=== PATIENT | female | born 1995 | race American Indian/Alaskan Native ===

== ENCOUNTER 2018-03-28 10:06 | Emergency (ER) | payer SELFPAY ==
[2018-03-28 10:19] VITALS: BP 115/66
[2018-03-28 11:40] LABS: Bilirubin,Urine NEG (Negative); Blood,Urine NEG (Negative); Color,Urine Yellow (Yellow); Mucus,Urine 1+ /HPF; Protein,Urine <15 mg/dL mg/dL (Negative)
[2018-03-28 11:41] LABS: HCG Qualitative,Urine Positive (Negative)
[2018-03-28] MEDS ORDERED: ZOFRAN ODT PO ONE (12:21)
--- NOTE | 2018-03-28 12:22 | Emergency Department Report ---
Vomiting/Diarrhea - HPI Chief Complaint: Nausea/Vomiting/Diarrhea Stated Complaint: NAUSEA/VOMITING Time Seen by Provider: 03/28/18 12:10 Severity: mild (the patient has been having nausea and vomiting for approximately 1 month) Nausea/Vomiting Severity: Mild Diarrhea Severity: None Symptoms: Yes Able to Tolerate Fluids, No Watery Diarrhea, No Bloody diarrhea, No Fever, No Recent Unusual Foods, No Recent Untreated Water, No Recent use of Antibiotics, No Family w/ Similar Symptoms, No Contacts w/ Similar Symptoms, No Rash, No Hematuria Other History: H and states she's had some nausea for approximately 1 month. Patient states she's had some mild fatigue. Patient missed her last menses but those to stress-induced. Patient states she is able to keep down fluids but is unable to eat. ED Review of Systems ROS: Stated complaint: NAUSEA/VOMITING Other details as noted in HPI Comment: All other systems reviewed and negative ED Past Medical Hx - Past Medical History Previous Medical History?: No - Surgical History Past Surgical History?: No - Social History Smoking Status: Never Smoker Substance Use Type: Marijuana - Medications Home Medications: Home Medications Medication Instructions Recorded Confirmed Last Taken Type Ondansetron [Zofran Odt] 4 mg PO Q12HR PRN #12 tab.rapdis 03/28/18 Unknown Rx Vomiting Diarrhea Exam - Exam General: Vital signs noted. No distress. Alert and acting appropriately. HEENT: Yes Moist Mucous Membranes, No Pharyngeal Erythema, No Pharyngeal Exudates, No Rhinorrhea, No Conjuctival Injection, No Frontal Tenderness, No Maxillary Tenderness Neck: No Adenopathy, No Rigidity Lungs: Yes Clear Lung Sounds, Yes Good Air Exchange, No Wheezes, No Stridor, No Cough, No Nasal Flaring, No Retractions, No Use of Accessory Muscles Heart exam: Regular: Yes, Murmur: No, Tachycardia: No Abdomen: Tenderness: No, Peritoneal Signs: No, Distention: No, Hyperactive Bowel sounds: No Skin exam: Rash: No, Edema: No, Normal turgor: Yes Neurologic: Alert and oriented, no deficits. Musculoskeletal: Unremarkable. ED Course Vital Signs 03/28/18 10:14 Temperature 98.5 F Pulse Rate 86 Respiratory 18 Rate Blood Pressure 115/66 O2 Sat by Pulse 100 Oximetry ED Medical Decision Making - Lab Data Lab Results 03/28/18 Range/Units 11:13 Urine Color Yellow (Yellow) Urine Turbidity Hazy (Clear) Urine pH 6.0 (5.0-7.0) Ur Specific [place] 1.025 (1.003-1.030) Urine Protein <15 mg/dl (Negative) mg/dL Urine Glucose (UA) Neg (Negative) mg/dL Urine Ketones Tr (Negative) mg/dL Urine Blood Neg (Negative) Urine Nitrite Neg (Negative) Urine Bilirubin Neg (Negative) Urine Urobilinogen 2.0 (<2.0) mg/dL Ur Leukocyte Esterase Neg (Negative) Urine WBC (Auto) 2.0 (0.0-6.0) /HPF Urine RBC (Auto) 3.0 (0.0-6.0) /HPF U Epithel Cells (Auto) 10.0 (0-13.0) /HPF Urine Mucus 1+ /HPF Urine HCG, Qual Positive A (Negative) - Medical Decision Making Carolina Adams's test was positive. Patient is a normal exam. There is no abdominal pain. Her mucous membranes are moist does not appear that she needs IV fluids at this time. Patient restarted on Zofran be discharged home with care. Critical care attestation.: If time is entered above; I have spent that time in minutes in the direct care of this critically ill patient, excluding procedure time. ED Disposition Clinical Impression: Nausea & vomiting Qualifiers: Weeks of gestation: unspecified Qualified Code(s): Z34.90 - Encounter for supervision of normal , unspecified, unspecified trimester Disposition: DC-01 TO HOME OR SELFCARE Is pt being admited?: No Does the pt Need Aspirin: No Condition: Stable Prescriptions: Ondansetron [Zofran Odt] 4 mg PO Q12HR PRN #12 tab.rapdis PRN Reason: Nausea Referrals: NATALIA ACEVEDO MD [Staff Physician] - 3-5 Days
== END 2018-03-28 12:33 | disposition home or self-care (01) ==
LOC: ED 10:06
DX: O21.9 Vomiting of pregnancy, unspecified (principal); F12.10 Cannabis abuse, uncomplicated; Z3A.01 Less than 8 weeks gestation of pregnancy
CPT/HCPCS: 81001; 81025; Q0162

== ENCOUNTER 2018-06-13 11:59 | Inpatient (IN) | payer MEDICAID ==
[2018-06-13] MEDS ORDERED: CYTOTEC VAGINAL ONE (12:20)
[2018-06-13] MEDS ORDERED: PFIZERPEN 2.5 MIL.UNITS in NACL 0.9% 50 ML IV ONE (12:20)
[2018-06-13] MEDS ORDERED: SUBLIMAZE IV PRN (12:20)
--- NOTE | 2018-06-13 12:31 | History and Physical Report ---
History of Present Illness Date of examination: 06/13/18 Date of admission: 06/13/18 11:59 History of present illness: 23 yo LMP EDC 11/09/18 @ at 18.5 weeks gestation, presented to office for routine limited U/S scan and was noted to have a demise. First trimester entry into care, denies complications including trauma, drug use, vaginal bleeding, cramping, abd pain or fall. Previous positive FHT's noted 05/09 at initial visit. course complicated by chlamydia infection and positive syphilis. Denies history of syphilis or treatment in past. Past History Past Medical History: no pertinent history Past Surgical History: no surgical history [employer] History: chlamydia (06/12/18), syphilis (06/12/18) Family/Genetic History: cancer (mom-unsure) Social history: no significant social history, single - Obstetrical History Expected Date of Delivery: 11/09/18 Actual Gestation: 18 Week(s) 5 Day(s) Medications and Allergies Allergies Allergy/AdvReac Type Severity Reaction Status Date / Time No Known Allergies Allergy Verified 03/28/18 10:19 Home Medications Medication Instructions Recorded Confirmed Last Taken Type Ondansetron [Zofran Odt] 4 mg PO Q12HR PRN #12 tab.rapdis 03/28/18 Unknown Rx Active Meds: Active Medications Azithromycin (Zithromax) 1,000 mg PO ONCE ONE Stop: 06/13/18 13:01 Butorphanol Tartrate (Stadol) 2 mg IV Q2H PRN PRN Reason: Pain , Severe (7-10) Ephedrine Sulfate (Ephedrine Sulfate) 10 mg IV Q2M PRN PRN Reason: Hypotension Fentanyl (Sublimaze) 100 mcg IV Q2H PRN PRN Reason: Labor Pain Lactated Ringer's (Lactated Ringers) 1,000 mls @ 125 mls/hr IV DIRECT THALIA Oxytocin/Sodium Chloride (Pitocin/Ns 20 Unit/1000ml Drip) 20 units in 1,000 mls @ 125 mls/hr IV DIRECT THALIA Oxytocin/Sodium Chloride (Pitocin/Ns 30 Unit/500ml) 30 units in 500 mls @ 1 mls /hr IV TITR THALIA; Protocol Penicillin G Potassium 2.5 mil (.units/ Sodium Chloride) 50 mls @ 100 mls/hr IV ONCE ONE; Protocol Stop: 06/13/18 12:49 Misoprostol (Cytotec) 400 mcg VAGINAL Q4H ONE Stop: 06/13/18 12:21 Review of Systems All systems: negative - Obstetrical FHR: other FHR comments: no FHT's per U/S scan Results All other labs normal. Assessment and Plan A: IUP at 18.5 weeks Demise Syphilis Infection Chlamydia Infection P: Active nadir't with Cytotec for demise PCN-IV Azithromycin po Pain medication as need MD aware
[2018-06-13] MEDS ORDERED: ZITHROMAX PO ONE (13:00)
[2018-06-13] MEDS ORDERED: LACTATED RINGERS 1,000 ML IV SCH (13:00)
[2018-06-13] MEDS ORDERED: PITOCin/NS 20 UNIT/1000ML DRIP 20 UNITS/1,000 ML BAG IV SCH (13:00)
[2018-06-13] MEDS ORDERED: PITOCin/NS 30 UNIT/500ML 30 UNITS/500 ML BAG IV SCH (13:00)
[2018-06-13 13:02] LABS: Hematocrit 37.3 % (30.3-42.9); Hemoglobin 12.9 gm/dl (10.1-14.3); Mean Corpuscular HGB Conc 35 % (30-34); Mean Corpuscular Hemoglobin 31 pg (28-32); Mean Corpuscular Volume 89 fl (79-97); Platelet Count 257 K/mm3 (140-440); Red Blood Count 4.19 M/mm3 (3.65-5.03); Red Cell Distribution Width 12.7 % (13.2-15.2)
[2018-06-13] MEDS: CYTOTEC VG SCH ×4 (13:28→23:13)
--- NOTE | 2018-06-13 17:42 | Event Note ---
Date: 06/13/18 Patient lying in bed c/o cramping No heart tones cervix closed 400 ug per vagina A/P IUFD IOL with cytotec next dose 200 ug 930p, 130a continue present mgt
[2018-06-13] MEDS: STADOL IV PRN (21:52)
[2018-06-14] MEDS: STADOL IV PRN ×2 (00:57→03:23)
[2018-06-14] MEDS: CYTOTEC VG SCH ×2 (01:47→04:26)
--- NOTE | 2018-06-14 04:31 | Event Note ---
Date: 06/14/18 Patient lying in bed without much cramping after delivering a nonviable appearing male fetus intact. The cord was clamped. Patient given 400 ug of cytotec per vagina. Will await for placenta to deliver. VSS bleeding minimal Patient stable continue present mgt. All questions answered
--- NOTE | 2018-06-14 13:02 | Procedure Note ---
OB Delivery Note - Delivery Date of Delivery: 06/14/18 Surgeon: HORTENSIA ACEVEDO Estimated blood loss: 100cc - Vaginal Delivery presentation: breech Intrapartum events: none Route of delivery: Delivery placenta: spontaneous Delivery laceration: none Anesthesia: none Delivery comments: see previous event note patient delivered placenta intact minimal bleeding CBC PP d/c home to f/u in 2 weeks - Infant A at 1 minute: 0 at 5 minutes: 0 Infant Gender: Male
--- NOTE | 2018-06-14 13:04 | Discharge Summary ---
Providers - Providers Date of Admission: 06/13/18 11:59 Date of discharge: 06/14/18 Attending physician: HORTENSIA ACEVEDO MD Primary care physician: HORTENSIA ACEVEDO MD Hospitalization Reason for admission: other (IUFD) Delivery: Episiotomy: none Laceration: none Other procedures: none complications: none Discharge diagnosis: other (IUFD) [place] baby: male Hospital course: Patient had round of cytotec for IOL for IUFD at 18 weeks. She did well and delivered fetus and placenta intact. No complications. PP CBC f/u in 2 weeks VSS. Condition at discharge: Good Disposition: DC-01 TO HOME OR SELFCARE Plan - Provider Discharge Summary Activity: routine, no sex for 6 weeks, no strenuous exercise Diet: routine Instructions: routine Additional instructions: [] Smoking cessation referral if applicable(refer to patient education folder for contact #) [] Refer to [facility] Book[facility] Call your doctor immediately for: * Fever > 100.5 * Heavy vaginal bleeding ( >1 pad per hour) * Severe persistent headache * Shortness of breath * Reddened, hot, painful area to leg or breast * Drainage or odor from incision. * Keep incision clean and dry at all times and follow doctor's instructions regarding bathing/showering - Follow up plan Follow up: HORTENSIA ACEVEDO MD [Primary Care Provider] - 14 Days
[2018-06-14 18:21] VITALS: BP 91/52
== END 2018-06-14 14:31 | disposition home or self-care (01) | DRG 779 ==
LOC: LD 11:59
PROVIDERS: ADMIT Obstetrics & Gynecology; ATTEND Obstetrics & Gynecology
PROC: 3E0P7VZ Introduction of Hormone into Female Reproductive, Via Natural or Artificial Opening (ICD-10-PCS; principal; 2018-06-14)
PROC: 10E0XZZ Delivery of Products of Conception, External Approach (ICD-10-PCS; 2018-06-14)
DX: O02.1 Missed abortion (principal); O98.111 Syphilis complicating pregnancy, first trimester; O98.811 Other maternal infectious and parasitic diseases complicating pregnancy, first trimester
CPT/HCPCS: 36415; 85027; 86850; 86900; 86901; 88305; J0595; J2540; J2590; J3010; J7120